=== PATIENT | male | born 1990 ===

== ENCOUNTER 2017-02-13 15:40 | Emergency (ER) | payer OTHER ==
--- NOTE | 2017-02-13 17:11 | C.PDOC ---
History Of Present Illness 26 y/o male presents to the ED for evaluation of right hand pain which began several days ago (Monday). Patient states he was on a ladder when he accidentally slipped, injuring his right hand in an attempt to stop himself from falling off. Patient states he tried applying Beng[place] to the area with minimal relief. Patient tried to go back to work but his pain continued- came to ED for further evaluation. Patient denies punching anything, sensory changes , open wounds/lacerations. Time Seen by Provider: 02/13/17 15:54 Chief Complaint (Nursing): Finger,Hand,&Wrist History Per: Patient History/Exam Limitations: no limitations Onset/Duration Of Symptoms: Days Current Symptoms Are (Timing): Still Present Severity: Moderate Quality Of Discomfort: "Pain" Additional History Per: Patient Past Medical History Reviewed: Historical Data, Nursing Documentation, Vital Signs Vital Signs: Last Vital Signs Temp 98.2 F 02/13/17 17:29 Pulse 64 02/13/17 17:29 Resp 18 02/13/17 17:29 BP 108/72 02/13/17 17:29 Pulse Ox 99 02/13/17 23:43 - Medical History PMH: No Chronic Diseases Surgical History: No Surg Hx Family History: States: No Known Family Hx - Social History Hx Alcohol Use: Yes Hx Substance Use: No - Immunization History Hx Tetanus Toxoid Vaccination: No Hx Influenza Vaccination: No Review Of Systems Except As Marked, All Systems Reviewed And Found Negative. Constitutional: Negative for: Fever Musculoskeletal: Positive for: Hand Pain (right) Skin: Negative for: Rash Neurological: Negative for: Weakness, Numbness, Dizziness, Other Physical Exam - Physical Exam Appears: Well, Non-toxic, No Acute Distress Skin: Normal Color, Warm, Dry Head: Atraumatic, Normacephalic Eye(s): bilateral: Normal Inspection Oral Mucosa: Moist Neck: Supple Cardiovascular: Rhythm Regular Respiratory: Normal Breath Sounds, No Rales, No Rhonchi, No Wheezing Extremity: Tenderness (TTP at right 4th and 5th metacarpal area ), Capillary Refill (< 2 seconds all digits ), No Deformity, Swelling (moderate swelling at right 4th and 5th metacarpal area) Extremity: Bilateral: Normal Color And Temperature Pulses: Left Radial: Normal, Right Radial: Normal Neurological/Psych: Oriented x3, Normal Sensation Gait: Steady ED Course And Treatment O2 Sat by Pulse Oximetry: 99 (on RA) Pulse Ox Interpretation: Normal - Other Rad wrist XR X-Ray: Interpreted by Me, Viewed By Me, Read By Radiologist Interpretation: Accession No. : [id number]. Patient Name / ID : JOSH HUDSON / [id number]. Exam Date : 02/13/2017 16:41:32 ( Approved ). Study Comment : Sex / Age : M / 26Y. Creator : Abraham Mathur MD. Dictator : Abraham Mathur MD. Pole Classifier : Measurement Operator : Abraham Mathur MD. Approver2 : Report Date : 02/13/2017 19:49:55. My Comment : . Right wrist four views. History: Fracture. Comparison: None available. Findings: Horizontally oriented complete fracture deformity through the midshaft of the 5th metacarpal bone with approximately 2.5 millimeters of ulnar sided distraction of the distal fracture fragment. Angulation at the fracture site. Impression: Horizontally oriented complete fracture deformity through the midshaft of the 5th metacarpal bone with approximately 2.5 millimeters of ulnar sided distraction of the distal fracture fragment. Angulation at the fracture site. hand XR X-Ray: Interpreted by Me, Viewed By Me, Read By Radiologist Interpretation: Accession No. : [id number]. Patient Name / ID : JOSH HUDSON / [id number]. Exam Date : 02/13/2017 16:41:13 ( Approved ). Study Comment : Sex / Age : M / 26Y. Creator : Abraham Mathur MD. Dictator : Abraham Mathur MD. Pole Classifier : Measurement Operator : Abraham Mathur MD. Approver2 : Report Date : 02/13/2017 19:46:45. My Comment : . Right hand four views. History: Fracture. Comparison: None available. Findings: Horizontally oriented complete fracture deformity through the midshaft of the 5th metacarpal bone with approximately 2.5 millimeters of ulnar sided distraction of the distal fracture fragment. Angulation at the fracture site. Few punctate radiopaque densities adjacent to the radial aspect of the 5th middle phalanx, nonspecific. Impression: Horizontally oriented complete fracture deformity through the midshaft of the 5th metacarpal bone with approximately 2.5 millimeters of ulnar sided distraction of the distal fracture fragment. Angulation at the fracture site. Progress Note: Right hand XR, Right wrist XR ordered and reviewed. Patient received Tylenol PO. Xray shows fx of 5th metacarpal. Patient placed in ulnar gutter split by feed research technician and checked by me, (+) MV intact. Rxs given for tylenol and vicodin, and patient instructed to follow up with orthopedics within 1 week. He understands he should return to ED if symptoms worsen. Reassessment Condition: Improved Disposition Counseled Patient/Family Regarding: Studies Performed, Diagnosis, Need For Followup, Rx Given - Disposition Referrals: [facility] at [facility] [Outside] Glenis Jorge MD [Staff Provider] - Disposition: HOME/ ROUTINE Disposition Time: 18:00 Condition: STABLE Additional Instructions: FOLLOW UP WITH ORTHO/DEJA SPECIALIST WITHIN 1 WEEK USE MEDICATIONS NEEDED FOR PAIN RETURN TO ER IF SYMPTOMS WORSEN Prescriptions: Acetaminophen [Tylenol 325mg tab] 650 mg PO Q6 PRN #30 tab PRN Reason: pain/fever Hydrocodone/Acetaminophen [Hydrocodon-Acetaminophen 5-325] 1 each PO Q6 PRN #15 tablet PRN Reason: Pain, Moderate (4-7) Instructions: Hand Fracture (ED) Forms: [facility] (Syrian), Work Excuse Print Language: EMIRATI - POA Present On Arrival: Falls Or Trauma - Clinical Impression Clinical Impression: Metacarpal bone fracture - Scribe Statement The provider has reviewed the documentation as recorded by the Scribe (Jewell Naranjo) Provider Attestation: All medical record entries made by the Scribe were at my direction and personally dictated by me. I have reviewed the chart and agree that the record accurately reflects my personal performance of the history, physical exam, medical decision making, and the department course for this patient. I have also personally directed, reviewed, and agree with the discharge instructions and disposition.
[2017-02-13 17:30] VITALS: BP 108/72; PULSE 64; RESP 18; TEMP 98.2
[2017-02-13 17:43] VITALS: O2SAT 99
--- NOTE | 2017-02-13 19:48 | RAD ---
Right hand four views History: Fracture. Comparison: None available. Findings: Horizontally oriented complete fracture deformity through the midshaft of the 5th metacarpal bone with approximately 2.5 millimeters of ulnar sided distraction of the distal fracture fragment. Angulation at the fracture site. Few punctate radiopaque densities adjacent to the radial aspect of the 5th middle phalanx, nonspecific. Impression: Horizontally oriented complete fracture deformity through the midshaft of the 5th metacarpal bone with approximately 2.5 millimeters of ulnar sided distraction of the distal fracture fragment. Angulation at the fracture site.
--- NOTE | 2017-02-13 19:51 | RAD ---
Right wrist four views History: Fracture. Comparison: None available. Findings: Horizontally oriented complete fracture deformity through the midshaft of the 5th metacarpal bone with approximately 2.5 millimeters of ulnar sided distraction of the distal fracture fragment. Angulation at the fracture site. Impression: Horizontally oriented complete fracture deformity through the midshaft of the 5th metacarpal bone with approximately 2.5 millimeters of ulnar sided distraction of the distal fracture fragment. Angulation at the fracture site.
== END 2017-02-13 18:00 | disposition home or self-care (01) ==
LOC: C.ER 15:40
DX: S62.326A Displaced fracture of shaft of fifth metacarpal bone, right hand, initial encounter for closed fracture (principal); W11.XXXA Fall on and from ladder, initial encounter